=== PATIENT | female | born 1945 ===

== ENCOUNTER 2017-01-08 22:21 | Emergency (ER) | payer OTHER, MEDICARE ==
[2017-01-08 22:38] VITALS: BP 167/96; PULSE 68; RESP 20; TEMP 98.1; O2SAT 96
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
== END 2017-01-08 23:48 | disposition home or self-care (01) ==
LOC: C.ER 22:21
DX: S40.011A Contusion of right shoulder, initial encounter (principal); V49.9XXA Car occupant (driver) (passenger) injured in unspecified traffic accident, initial encounter; I10 Essential (primary) hypertension; E78.00 Pure hypercholesterolemia, unspecified